=== PATIENT | female | born 2000 | race Two or more races ===

== ENCOUNTER → 2018-06-22 | Outpatient (CLI) | payer BC ==
--- NOTE | 2018-06-22 16:52 | RAD ---
Right upper quadrant abdominal ultrasound History: ACALCULUS CHOLECYSTITIS Comparison: None. Technique: Transabdominal ultrasound images are obtained. Findings: Visualized pancreas is unremarkable. Liver is normal in echogenicity. Right hepatic lobe measures 15.3 cm. Portal flow is hepatopedal. No gallbladder wall thickening. No cholelithiasis. Sonographic Lu sign is negative. Common bile duct caliber is normal measuring 3 mm in diameter. The right kidney measures 10 cm in length. No hydronephrosis. Normal corticomedullary differentiation. IVC is patent. IMPRESSION: Normal right upper quadrant ultrasound. Electronically signed by: Pa Fung MD (06/22/2018 4:47 PM) [id number]
== END | disposition home or self-care (01) ==
LOC: US 16:10
PROVIDERS: ATTEND Specialist
DX: K80.12 Calculus of gallbladder with acute and chronic cholecystitis without obstruction (principal)
CPT/HCPCS: 76705

== ENCOUNTER → 2018-07-28 | Outpatient (CLI) | payer BC ==
[~2018-07-28] VITALS: Ht 170.2 cm; Wt 66.2 kg
[~2018-07-28] MED LIST: BIOT1CAP3 PO; IBUP-1027 PO; NORG1TAB6 PO; OXYC1TAB19 PO; PNV1TABL25 PO; SINCALIDE 1.32 MCG in IV NORMAL SALINE 50ML 30 ML IV ONE
[2018-07-28 09:46] LABS: ALBUMIN 3.5 g/dL (3.4-5.0); ALBUMIN/GLOBULIN RATIO 0.9 (1.0-1.7); CALCIUM 8.6 mg/dL (8.5-10.1); CREATININE 0.7 mg/dL (0.6-1.0); GFR 106.7; TOTAL BILIRUBIN 0.3 mg/dL (0.2-1.0); TOTAL PROTEIN 7.2 g/dL (6.4-8.2)
--- NOTE | 2018-07-28 11:31 | RAD ---
HEPATOBILIARY SCAN WITH EJECTION FRACTION 07/28/2018 11:26 AM History: Chronic , intermittent abdominal pain x 6 months 5.5mci 99mTc Choletec - 1.3 mCg Kinevac iv for EF Procedure: Serial static images are obtained of the liver and biliary system in the frontal projection following IV administration of 5.5 mCi of Technetium 99m Choletec. After filling of the gallbladder, 1.3 mcg of sincalide were infused over 30 minutes and dynamic imaging continued over this period. The gallbladder ejection fraction was calculated. Findings: There is prompt hepatic clearance of tracer from the blood pool. There is homogeneous distribution throughout the liver. The gallbladder ejection fraction measures 29% (normal gallbladder EF is 35% or greater). IMPRESSION: 1. The cystic duct and common bile duct are patent. Negative for acute cholecystitis. 2. The gallbladder ejection fraction is low measuring 29 percent. Findings most commonly associated with chronic cholecystitis or gallbladder dyskinesia. Electronically signed by: Brandin Rodgers MD (07/28/2018 11:29 AM) [id number]
--- NOTE | 2018-08-09 17:12 | HP ---
ADMIT DATE: 07/28/2018 HISTORY OF PRESENT ILLNESS: She had abdominal pain for about a year on and off. It has always been just below the costal margin on the right upper abdomen. 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 No pathology was noted. She has also had the PIPIDA scan and the last one done about a week prior to this dictation showed an ejection fraction of 20%. Probable dyskinesia. She did have a sonogram, original one, which showed a thick-walled gallbladder, but no stones. She also had a CT scan of the abdomen and pelvis, which was unremarkable. She continues to have this gas and bloating, postprandial fatty food intolerance with nausea, bloating. PAST MEDICAL HISTORY: Shows that she had the normal childhood diseases. She did have at age of 7 torsion of the right ovary and had it removed. She was worked up for a long time for that, and they did not think she had, but she did. That is the only surgery that she has actually had. ALLERGIES: She has no allergies. MEDICATIONS: She takes no medication, no anticoagulants. No aspirin. FAMILY HISTORY: Noncontributory. SOCIAL HISTORY: She does not smoke, drink or use illicit drugs. She has no history of taken any medication. REVIEW OF SYSTEMS: Negative except for the postprandial bloating and abdominal pain, cramping that. PHYSICAL EXAMINATION: GENERAL: Shows an alert female in no acute distress. HEAD, EYES, EARS, NOSE AND THROAT: Grossly normal. CHEST: Clear bilaterally to auscultation. HEART: Had no murmurs, heaves, friction rubs or thrills and the rate was estimated to be 72 beats per minute. ABDOMEN: Soft, no organomegaly was noted. There were no masses. She did have tenderness just below the costal margin on the right. There was no rebound or guarding; however, no evidence of peritoneal irritation. Pelvic was not done. EXTREMITIES: Grossly normal. IMPRESSION: 1. Acalculous cholecystitis with gallbladder dyskinesia. 2. Status post right oophorectomy for torsion. ROSANNE BAER MD DR: YONIS/trina JOB#: [id number] / [id number]
== END | disposition home or self-care (01) ==
LOC: NM 08:13
PROVIDERS: ATTEND Specialist
DX: K80.20 Calculus of gallbladder without cholecystitis without obstruction (principal)
CPT/HCPCS: 36415; 78227; 80053; 82150; 83690; A9537; J2805

== ENCOUNTER 2018-08-23 07:49 | Day surgery (SDC) | payer BC ==
--- NOTE | 2018-08-23 06:59 | PREOP HP ---
DATE OF SERVICE: 07/28/2018 HISTORY OF PRESENT ILLNESS: She had abdominal pain for about a year on and off. It has always been just below the costal margin on the right upper abdomen. 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 No pathology was noted. She has also had the PIPIDA scan and the last one done about a week prior to this dictation showed an ejection fraction of 20%. Probable dyskinesia. She did have a sonogram, original one, which showed a thick-walled gallbladder, but no stones. She also had a CT scan of the abdomen and pelvis, which was unremarkable. She continues to have this gas and bloating, postprandial fatty food intolerance with nausea and bloating. PAST MEDICAL HISTORY: Shows that she had the normal childhood diseases. She did have at age of 7 torsion of the right ovary and had it removed. She was worked up for a long time for that, and they did not think she had, but she did. That is the only surgery that she has actually had. ALLERGIES: She has no allergies. MEDICATIONS: She takes no medication, no anticoagulants. No aspirin. FAMILY HISTORY: Noncontributory. SOCIAL HISTORY: She does not smoke, drink or use illicit drugs. She has no history of taking any medication. REVIEW OF SYSTEMS: Negative except for the postprandial bloating and abdominal pain, cramping that she has. PHYSICAL EXAMINATION: GENERAL: Shows an alert female in no acute distress. HEAD, EYES, EARS, NOSE AND THROAT: Grossly normal. CHEST: Clear bilaterally to auscultation. HEART: Had no murmurs, heaves, friction rubs or thrills and the rate was estimated to be 72 beats per minute. ABDOMEN: Soft, no organomegaly was noted. There were no masses. She did have tenderness just below the costal margin on the right. There was no rebound or guarding; however, no evidence of peritoneal irritation. Pelvic was not done. EXTREMITIES: Grossly normal. IMPRESSION: 1. Acalculous cholecystitis with gallbladder dyskinesia. 2. Status post right oophorectomy for torsion. ROSANNE BAER MD DR: YONIS/trina JOB#: [id number] / [id number] MTDD
[~2018-08-23 07:49] MED LIST changes: +HYDROmorphone 2 MG/ML VIAL IV PRN; +IV RINGERS,LACTATED 1000ML 1,000 ML IV SCH; +LIDOCAINE 1% PF 2 ML VIAL. ID PRN; +ONDANSETRON PF 4 MG/2 ML VIAL. IV PRN; -OXYC1TAB19 PO; +PROCHLORPERAZINE 10 MG/2 ML VIAL. IV PRN; -SINCALIDE 1.32 MCG in IV NORMAL SALINE 50ML 30 ML IV ONE; +fentaNYL PF VIAL 100 MCG/2 ML VIAL IV PRN
[2018-08-23] MEDS ORDERED: BUPIVAC MPF-EPI 0.5%-1:200000 30 ML VIAL. ONE (08:21)
[2018-08-23] MEDS ORDERED: IOHEXOL 300 MG/ML 100ML VIAL. ONE (08:22)
[2018-08-23 08:24] LABS: U PREG PATIENT NEGATIVE (NEG)
[2018-08-23 08:40] LABS: BASO % 1 % (0-3); EOS # 0.2 x10^3/uL (0.0-0.7); EOS % 3 % (0-3); HEMATOCRIT 36.7 % (36.0-47.0); HEMOGLOBIN 12.8 g/dL (12.0-15.5); LYMPH # 1.7 x10^3/uL (1.0-4.8); LYMPH % 25 % (24-48); MEAN CORPUSCULAR HEMOGLOBIN 31 pg (25-35); MEAN CORPUSCULAR HGB CONC 35 g/dL (31-37); MEAN CORPUSCULAR VOLUME 88 fL (79-100); MONO # 0.6 x10^3/uL (0.0-1.1); MONO % 9 % (0-9); NEUT # 4.3 x10^3uL (1.8-7.7); NEUT % 63 % (31-73); PLATELET COUNT 253 x10^3/uL (140-400); RED BLOOD COUNT 4.19 x10^6/uL (3.50-5.40); RED CELL DISTRIBUTION WIDTH 13.5 % (11.5-14.5); WHITE BLOOD COUNT 6.9 x10^3/uL (4.0-11.0)
[2018-08-23] MEDS ORDERED: MIDAZOLAM HCL/PF 2 MG/2 ML VIAL. ONE (08:50)
[2018-08-23] MEDS ORDERED: fentaNYL PF VIAL 250 MCG/5 ML VIAL ONE (08:50)
[2018-08-23] MEDS ORDERED: LIDOCAINE 2% PF 5 ML VIAL. ONE (08:51)
[2018-08-23] MEDS ORDERED: DEXAMETHASONE SOD PHOS 20 MG/5 ML VIAL. ONE (08:51)
[2018-08-23] MEDS ORDERED: ONDANSETRON PF 4 MG/2 ML VIAL. ONE (08:51)
[2018-08-23] MEDS ORDERED: PROPOFOL 20 ML IV ONE (08:51)
[2018-08-23] MEDS ORDERED: ROCURONIUM 100 MG/10 ML VIAL. ONE (08:52)
[2018-08-23 08:54] LABS: CALCIUM 8.4 mg/dL (8.5-10.1); CREATININE 0.7 mg/dL (0.6-1.0); GFR 106.7; POTASSIUM 3.7 mmol/L (3.5-5.1)
[2018-08-23 09:05] LABS: PROTHROMBIN TIME PATIENT 13.7 SEC (11.7-14.0)
--- NOTE | 2018-08-23 09:29 | PDOC ---
SURGICAL PROGRESS NOTE Subjective No change in dictated H&P Vital Signs Vital Signs Date Time Temp Pulse Resp B/P (MAP) Pulse Ox O2 Delivery O2 Flow Rate FiO2 08/23/18 08:21 97.8 80 20 109/63 99 Room Air 97.8 Labs Laboratory Tests Test 08/23/18 08:00 08/23/18 08:10 White Blood Count 6.9 x10^3/uL (4.0-11.0) Red Blood Count 4.19 x10^6/uL (3.50-5.40) Hemoglobin 12.8 g/dL (12.0-15.5) Hematocrit 36.7 % (36.0-47.0) Mean Corpuscular Volume 88 fL (79-100) Mean Corpuscular Hemoglobin 31 pg (25-35) Mean Corpuscular Hemoglobin Concent 35 g/dL (31-37) Red Cell Distribution Width 13.5 % (11.5-14.5) Platelet Count 253 x10^3/uL (140-400) Neutrophils (%) (Auto) 63 % (31-73) Lymphocytes (%) (Auto) 25 % (24-48) Monocytes (%) (Auto) 9 % (0-9) Eosinophils (%) (Auto) 3 % (0-3) Basophils (%) (Auto) 1 % (0-3) Neutrophils # (Auto) 4.3 x10^3uL (1.8-7.7) Lymphocytes # (Auto) 1.7 x10^3/uL (1.0-4.8) Monocytes # (Auto) 0.6 x10^3/uL (0.0-1.1) Eosinophils # (Auto) 0.2 x10^3/uL (0.0-0.7) Basophils # (Auto) 0.0 x10^3/uL (0.0-0.2) Prothrombin Time 13.7 SEC (11.7-14.0) Prothromb Time International Ratio 1.1 (0.8-1.1) Sodium Level 139 mmol/L (136-145) Potassium Level 3.7 mmol/L (3.5-5.1) Chloride Level 103 mmol/L (98-107) Carbon Dioxide Level 25 mmol/L (21-32) Anion Gap 11 (6-14) Blood Urea Nitrogen 10 mg/dL (7-20) Creatinine 0.7 mg/dL (0.6-1.0) Estimated GFR (Cockcroft-Gault) 106.7 Glucose Level 91 mg/dL (70-99) Calcium Level 8.4 mg/dL (8.5-10.1) Urine Test Negative (NEG) Laboratory Tests Test 08/23/18 08:00 08/23/18 08:10 White Blood Count 6.9 x10^3/uL (4.0-11.0) Red Blood Count 4.19 x10^6/uL (3.50-5.40) Hemoglobin 12.8 g/dL (12.0-15.5) Hematocrit 36.7 % (36.0-47.0) Mean Corpuscular Volume 88 fL (79-100) Mean Corpuscular Hemoglobin 31 pg (25-35) Mean Corpuscular Hemoglobin Concent 35 g/dL (31-37) Red Cell Distribution Width 13.5 % (11.5-14.5) Platelet Count 253 x10^3/uL (140-400) Neutrophils (%) (Auto) 63 % (31-73) Lymphocytes (%) (Auto) 25 % (24-48) Monocytes (%) (Auto) 9 % (0-9) Eosinophils (%) (Auto) 3 % (0-3) Basophils (%) (Auto) 1 % (0-3) Neutrophils # (Auto) 4.3 x10^3uL (1.8-7.7) Lymphocytes # (Auto) 1.7 x10^3/uL (1.0-4.8) Monocytes # (Auto) 0.6 x10^3/uL (0.0-1.1) Eosinophils # (Auto) 0.2 x10^3/uL (0.0-0.7) Basophils # (Auto) 0.0 x10^3/uL (0.0-0.2) Prothrombin Time 13.7 SEC (11.7-14.0) Prothromb Time International Ratio 1.1 (0.8-1.1) Sodium Level 139 mmol/L (136-145) Potassium Level 3.7 mmol/L (3.5-5.1) Chloride Level 103 mmol/L (98-107) Carbon Dioxide Level 25 mmol/L (21-32) Anion Gap 11 (6-14) Blood Urea Nitrogen 10 mg/dL (7-20) Creatinine 0.7 mg/dL (0.6-1.0) Estimated GFR (Cockcroft-Gault) 106.7 Glucose Level 91 mg/dL (70-99) Calcium Level 8.4 mg/dL (8.5-10.1) Urine Test Negative (NEG) ROSANNE BAER MD Aug 23, 2018 09:29
--- NOTE | 2018-08-23 09:33 | PDOC ---
SURGICAL PROGRESS NOTE Subjective OP Note: Surgeon............................................Oliverio Pre op diag.......................................acalculous cholecystitis Post op diag.....................................same with intra bbd adhesions anesthesia.......................................general Procedure........................................lap christian with attempted grams and lap enterolysis Drains..............................................none Fluids..............................................ser anesthesia sheet Blood loss.......................................20 Condition.........................................Satisfactory Vital Signs Vital Signs Date Time Temp Pulse Resp B/P (MAP) Pulse Ox O2 Delivery O2 Flow Rate FiO2 08/23/18 08:21 97.8 80 20 109/63 99 Room Air 97.8 Labs Laboratory Tests Test 08/23/18 08:00 08/23/18 08:10 White Blood Count 6.9 x10^3/uL (4.0-11.0) Red Blood Count 4.19 x10^6/uL (3.50-5.40) Hemoglobin 12.8 g/dL (12.0-15.5) Hematocrit 36.7 % (36.0-47.0) Mean Corpuscular Volume 88 fL (79-100) Mean Corpuscular Hemoglobin 31 pg (25-35) Mean Corpuscular Hemoglobin Concent 35 g/dL (31-37) Red Cell Distribution Width 13.5 % (11.5-14.5) Platelet Count 253 x10^3/uL (140-400) Neutrophils (%) (Auto) 63 % (31-73) Lymphocytes (%) (Auto) 25 % (24-48) Monocytes (%) (Auto) 9 % (0-9) Eosinophils (%) (Auto) 3 % (0-3) Basophils (%) (Auto) 1 % (0-3) Neutrophils # (Auto) 4.3 x10^3uL (1.8-7.7) Lymphocytes # (Auto) 1.7 x10^3/uL (1.0-4.8) Monocytes # (Auto) 0.6 x10^3/uL (0.0-1.1) Eosinophils # (Auto) 0.2 x10^3/uL (0.0-0.7) Basophils # (Auto) 0.0 x10^3/uL (0.0-0.2) Prothrombin Time 13.7 SEC (11.7-14.0) Prothromb Time International Ratio 1.1 (0.8-1.1) Sodium Level 139 mmol/L (136-145) Potassium Level 3.7 mmol/L (3.5-5.1) Chloride Level 103 mmol/L (98-107) Carbon Dioxide Level 25 mmol/L (21-32) Anion Gap 11 (6-14) Blood Urea Nitrogen 10 mg/dL (7-20) Creatinine 0.7 mg/dL (0.6-1.0) Estimated GFR (Cockcroft-Gault) 106.7 Glucose Level 91 mg/dL (70-99) Calcium Level 8.4 mg/dL (8.5-10.1) Urine Test Negative (NEG) Laboratory Tests Test 08/23/18 08:00 08/23/18 08:10 White Blood Count 6.9 x10^3/uL (4.0-11.0) Red Blood Count 4.19 x10^6/uL (3.50-5.40) Hemoglobin 12.8 g/dL (12.0-15.5) Hematocrit 36.7 % (36.0-47.0) Mean Corpuscular Volume 88 fL (79-100) Mean Corpuscular Hemoglobin 31 pg (25-35) Mean Corpuscular Hemoglobin Concent 35 g/dL (31-37) Red Cell Distribution Width 13.5 % (11.5-14.5) Platelet Count 253 x10^3/uL (140-400) Neutrophils (%) (Auto) 63 % (31-73) Lymphocytes (%) (Auto) 25 % (24-48) Monocytes (%) (Auto) 9 % (0-9) Eosinophils (%) (Auto) 3 % (0-3) Basophils (%) (Auto) 1 % (0-3) Neutrophils # (Auto) 4.3 x10^3uL (1.8-7.7) Lymphocytes # (Auto) 1.7 x10^3/uL (1.0-4.8) Monocytes # (Auto) 0.6 x10^3/uL (0.0-1.1) Eosinophils # (Auto) 0.2 x10^3/uL (0.0-0.7) Basophils # (Auto) 0.0 x10^3/uL (0.0-0.2) Prothrombin Time 13.7 SEC (11.7-14.0) Prothromb Time International Ratio 1.1 (0.8-1.1) Sodium Level 139 mmol/L (136-145) Potassium Level 3.7 mmol/L (3.5-5.1) Chloride Level 103 mmol/L (98-107) Carbon Dioxide Level 25 mmol/L (21-32) Anion Gap 11 (6-14) Blood Urea Nitrogen 10 mg/dL (7-20) Creatinine 0.7 mg/dL (0.6-1.0) Estimated GFR (Cockcroft-Gault) 106.7 Glucose Level 91 mg/dL (70-99) Calcium Level 8.4 mg/dL (8.5-10.1) Urine Test Negative (NEG) ROSANNE BAER MD Aug 23, 2018 09:32
[2018-08-23 09:43] LABS: ALBUMIN 3.3 g/dL (3.4-5.0); DIRECT BILIRUBIN 0.1 mg/dL (0.0-0.2); TOTAL BILIRUBIN 0.4 mg/dL (0.2-1.0); TOTAL PROTEIN 6.8 g/dL (6.4-8.2)
[2018-08-23] MEDS ORDERED: GLYCOPYRROLATE 1 MG/5 ML VIAL. ONE (11:40)
[2018-08-23] MEDS ORDERED: NEOSTIGMINE METHYLSULFATE 5 MG/5 ML SYRINGE. ONE (11:40)
[2018-08-23] MEDS ORDERED: MORPHINE SULFATE 4 MG/ML VIAL. ONE (12:26)
[2018-08-23] MEDS ORDERED: POTASSIUM CL 20MEQ-0.45% NACL 1,000 ML IV SCH (12:29)
[2018-08-23] MEDS ORDERED: ONDANSETRON PF 4 MG/2 ML VIAL. IV PRN (12:30)
[2018-08-23] MEDS ORDERED: 0.9 % SODIUM CHLORIDE 10 ML DISP.SYRIN. IV PRN ×2 (12:30)
[2018-08-23] MEDS ORDERED: oxyCODONE/APAP 5/325 1 TAB TABLET PO PRN (12:30)
[2018-08-23] MEDS: fentaNYL PF VIAL 100 MCG/2 ML VIAL IV PRN ×2 (12:31→12:43)
[2018-08-23] MEDS: MORPHINE SULFATE 2 MG/ML VIAL. IV PRN ×4 (12:36→13:09)
[2018-08-23 13:31] VITALS: BP 117/70
[2018-08-23] MEDS ORDERED: OXYC1TAB19 PO (13:38)
[2018-08-23] MEDS ORDERED: FAMOTIDINE 20 MG/2 ML VIAL IVP SCH (21:00)
--- NOTE | 2018-08-23 23:43 | OP ---
DATE OF SURGERY: SURGEON: Fly Baer M.D. PREOPERATIVE DIAGNOSES: Acalculous cholecystitis and abdominal pain. POSTOPERATIVE DIAGNOSES: Acalculous cholecystitis and abdominal pain with intra-abdominal adhesions. ANESTHESIA: General. PROCEDURE: Laparoscopic cholecystectomy and enterolysis with attempted operative cholangiogram. TECHNIQUE: Under general anesthesia, the patient was prepped and draped in a routine fashion. The abdomen was entered as we properly prepped and draped the patient in a routine fashion. In the right upper quadrant, about 2 inches below the costal margin, we made a small incision and pulling up with towel clips on either side, we passed a Veress needle into the peritoneal cavity. We then instilled about an mL or two of saline into the intra-abdominal cavity as we let it fall in right gravity. We insufflated the abdomen up to 15 with CO2, then placed a 5-mm trocar. We placed a 5-mm camera and inspected the abdomen, and obviously, she had adhesions in the pelvis and she had had right ovary surgery. She also had adhesions of the right colon, with omentum and other material over there and I do not know why that was there. She did not have surgery there and this was going up the right colon. It did not go to the gallbladder, however. The gallbladder was somewhat tense, but not inflamed. As such, under direct visualization, a small incision was made in the infraumbilical area and an 11-mm trocar was placed there. A 5-mm trocar was placed in the epigastrium, just to the right of the falciform ligament, which was atraumatic with the trocar and then laterally, a 5-mm trocar was placed. The patient was placed in reverse Trendelenburg left side down and then the graspers were placed and a right angle dissector was placed. We then grabbed the gallbladder with the right lower quadrant grasper and pushed it up toward the right shoulder and grabbed the ampulla with that. There was a small bit of just fatty tissue around the cystic duct portion of the gallbladder and this was peeled away. We identified the cystic duct, encircled it and spread the tissues around it. We then placed clips high up on the gallbladder, where the cystic duct entered and then made an incision in the cystic duct. We tried to place a catheter in this area through a needle placed in the right abdomen, but could not get the catheter in and could not do the cholangiogram. As such, bile was coming out. We then clipped the gallbladder 3 times on the patient's side at the area close to the gallbladder that had been divided and so the cystic duct was occluded with the clips. It was completely then divided and then the cystic artery was identified and clipped twice on the patient's side and once on the gallbladder side and divided. The gallbladder was sort of intrahepatic and we, therefore, slowly removed the gallbladder, shelling it out of the gallbladder fossa using Harmonic scalpel. Before it was completely removed, we identified the hilum. There were no bile leaks, no bleeding and no abnormalities in the cystic duct. Clips were seen and no clips were on anything other than the cystic duct and the cystic artery. She did have a posterior cystic artery and it was likewise clipped. The gallbladder was then amputated from the gallbladder tip and then a 5-mm trocar was placed in the epigastrium and the EndoCatch basket was placed in the abdomen and the gallbladder was placed in this. The gallbladder was then removed through this area. We then dissected some of the adhesions away from the right colon, so that we could see the cecum and identify the appendix. It was not inflamed and she had no difficulty. We did this because she had adhesions and this yielded right abdominal pain. The preoperative scan was abnormal, but we wanted to make certain that we did not miss something in the right abdomen. As such, the procedure was then terminated as the Harmonic scalpel was used to divide some of the adhesions. We then inspected everything. There was no bleeding and blood was aspirated from the lateral portion of the liver and we inspected all areas and the gallbladder. The abdomen was deflated as all the CO2 was aspirated and this was after we had placed two #0 Prolene sutures in the umbilical port. We saw that there was no injury to any intra-abdominal contents and the anterior abdomen was free of any adhesions and the sutures had been placed in anything but the fascia. We then, after having deflated the abdomen, removed the trocars and all instruments and basically the procedure was terminated. The subq was irrigated with saline and approximated using 4-0 Vicryl and the skin was closed in all locations using a subcuticular 5-0 Vicryl. Sterile Tegaderm dressings were applied as the procedure was terminated. The blood loss was probably 10-15 mL. Fluids given can be obtained from the anesthesia sheet. No drains were used, and the condition of the patient was satisfactory as she was returned to the recovery room. FLY BAER MD DR: YONIS/trina JOB#: [id number] / [id number] SANDRA
[2018-08-24] MEDS ORDERED: ceFAZolin SODIUM 1 GM in IV DEXTROSE 5% 50 ML IV SCH (12:30)
--- NOTE | 2018-08-24 17:07 | PATHOLOGY ---
[facility] Accession Number: [id number] . 01 Material submitted: . GALLBLADDER . 01 Clinical history: . Cholecystitis . 02 Diagnosis: Gallbladder, laparoscopic cholecystectomy: - Cholesterolosis, focal. - Chronic cholecystitis. LB/08/24/2018 . 02 Comment: There are no calculi identified within the gallbladder lumen or specimen container. There is no evidence of malignancy. (JPM/db; 08/24/2018) . 02 Electronically signed: . Freddy Flores MD, Pathologist NPI- [id number] . 01 Gross description: . The specimen is received in formalin, labeled "Calvin, Mar, gallbladder", is an intact, distended gallbladder measuring 6.7 x 3.0 x 2.2 cm with a glistening, smooth, purple-dial serosa. The lumen is filled with yellow-green viscous bile and no discrete calculi. The mucosa is dial-brown and a diffusely covered by minute yellow flecks, and the gallbladder wall has an average thickness of 0.1 cm. No discrete masses are identified. Traveling Sales [employer] tissue is submitted in A1. ([facility]; 08/23/2018) SHS/SHS . 02 Pathologist provided ICD-10: K81.1, K82.4 . 02 CPT . 998264 Specimen Comment: A courtesy copy of this report has been sent to Specimen Comment: [phone]. Specimen Comment: Report sent to Performed at: 01 [facility] [address], [place] [id number] MD [place] MD Phone: [phone] Performed at: 02 [facility] [address] [place], [place] [id number] MD Freddy Flores MD Phone: [phone]
== END 2018-08-23 13:56 | disposition home or self-care (01) ==
LOC: SURG 07:49
PROVIDERS: ATTEND Specialist
DX: K81.1 Chronic cholecystitis (principal); K66.0 Peritoneal adhesions (postprocedural) (postinfection); Z90.721 Acquired absence of ovaries, unilateral; Z79.01 Long term (current) use of anticoagulants; Z79.899 Other long term (current) drug therapy
CPT/HCPCS: 36415; 47562; 80048; 80076; 81025; 85025; 85610; 88304; A7015; J0690; J0780; J1100; J1170; J2001; J2250; J2270; J2405; J2704; J2710; J3010; J3490; J7030; J7120; Q9967